=== PATIENT | female | born 1990 | race American Indian/Alaskan Native ===

== ENCOUNTER 2018-03-19 14:28 | Emergency (ER) | payer BC ==
[2018-03-19 14:36] VITALS: BP 148/68
== END 2018-03-19 17:22 | disposition left against medical advice (07) ==
LOC: ED 14:28
DX: F41.9 Anxiety disorder, unspecified (principal); R07.89 Other chest pain; Z53.21 Procedure and treatment not carried out due to patient leaving prior to being seen by health care provider